=== PATIENT | female | born 1970 | race Caucasian/White ===

== ENCOUNTER 2017-02-27 17:32 | Emergency (ER) | payer MEDICAID ==
[~2017-02-27] VITALS: Ht 157.5 cm; Wt 108.9 kg
[2017-02-27 21:36] VITALS: BP 134/72
== END 2017-02-27 21:36 | disposition home or self-care (01) ==
LOC: ED 17:32
DX: F41.0 Panic disorder [episodic paroxysmal anxiety] (principal); I10 Essential (primary) hypertension
CPT/HCPCS: J2060

== ENCOUNTER 2018-05-17 12:13 | Emergency (ER) | payer OTHER ==
[~2018-05-17] VITALS: Ht 162.6 cm; Wt 136.1 kg
[2018-05-17 12:21] VITALS: Ht 162.6 cm; Wt 136.1 kg
[2018-05-17 15:12] VITALS: BP 114/77
== END 2018-05-17 15:12 | disposition home or self-care (01) ==
LOC: ED 12:13
DX: S30.0XXA Contusion of lower back and pelvis, initial encounter (principal); S89.91XA Unspecified injury of right lower leg, initial encounter; F41.9 Anxiety disorder, unspecified; I10 Essential (primary) hypertension; W01.0XXA Fall on same level from slipping, tripping and stumbling without subsequent striking against object, initial encounter; Y93.89 Activity, other specified; Y92.89 Other specified places as the place of occurrence of the external cause; Y99.8 Other external cause status
CPT/HCPCS: J1885; J2270; J2405

== ENCOUNTER 2018-09-08 11:54 | Emergency (ER) | payer OTHER ==
[~2018-09-08] VITALS: Ht 167.6 cm; Wt 113.4 kg
[2018-09-08 12:29] VITALS: Ht 167.6 cm; Wt 113.4 kg
[2018-09-08 12:52] LABS: BASOPHIL % 0.6 % (0-2); PLATELET COUNT 272 x10^3mcL (130-400); RED CELL DISTRIBUTION WIDTH 13.8 % (11.5-14.5)
[2018-09-08 13:18] LABS: CARBON DIOXIDE 24.6 mmol/L (21-32); CHLORIDE SERUM 105 mmol/L (98-107); CREATININE SERUM 0.6 mg/dL (0.6-1.0); GFR1 > 60 mL/min; GLUCOSE SERUM 119 mg/dL (74-106); SODIUM SERUM 137 mmol/L (136-145)
[2018-09-08 13:23] LABS: ALKALINE PHOSPHATASE 64 U/L (46-116); ALT/SGPT 21 U/L (14-59); AST/SGOT 19 U/L (15-37); BILIRUBIN TOTAL 0.3 mg/dL (0.20-1.00); LIPASE 106 IU/L (73-393); TOTAL PROTEIN, SERUM 7.4 g/dL (6.4-8.2)
[2018-09-08 13:26] LABS: ALBUMIN 3.2 g/dL (3.4-5.0)
[2018-09-08 14:35] VITALS: BP 121/66
== END 2018-09-08 14:36 | disposition home or self-care (01) ==
LOC: ED 11:54
PROVIDERS: Emergency Medicine
DX: S39.012A Strain of muscle, fascia and tendon of lower back, initial encounter (principal); F41.9 Anxiety disorder, unspecified; I10 Essential (primary) hypertension; X58.XXXA Exposure to other specified factors, initial encounter; Y93.89 Activity, other specified; Y92.89 Other specified places as the place of occurrence of the external cause; Y99.8 Other external cause status
CPT/HCPCS: J1885; J2270